=== PATIENT | male | born 1980 | race African-American/Black ===

== ENCOUNTER 2021-07-03 00:33 | Emergency (ER) | payer OTHER ==
[~2021-07-03] VITALS: Ht 170.2 cm; Wt 77.1 kg
[2021-07-03] MEDS ORDERED: MUCINEX DM ER1 EAC1 PO (04:16)
[2021-07-03] MEDS ORDERED: ACETAMINOPHEN650 M2 PO (04:16)
[2021-07-03] MEDS ORDERED: PEPCID AC20 MG PO (04:16)
[2021-07-03] MEDS ORDERED: LEVOFLOXACIN750 MG PO (04:16)
[2021-07-03] MEDS ORDERED: INTESTINEX680 M1 PO (04:16)
== END 2021-07-03 04:25 | disposition home or self-care (01) ==
LOC: ER 00:33
DX: J06.9 Acute upper respiratory infection, unspecified (principal); B34.9 Viral infection, unspecified; Z03.818 Encounter for observation for suspected exposure to other biological agents ruled out

== ENCOUNTER 2021-09-17 08:18 | Emergency (ER) | payer OTHER ==
[~2021-09-17] VITALS: Ht 167.6 cm; Wt 64.4 kg
[~2021-09-17 08:18] MED LIST: ACETAMINOPHEN650 M2 PO; INTESTINEX680 M1 PO; LEVOFLOXACIN750 MG PO; MUCINEX DM ER1 EAC1 PO; PEPCID AC20 MG PO
== END 2021-09-17 13:44 | disposition home or self-care (01) ==
LOC: ER 08:18
DX: B34.9 Viral infection, unspecified (principal); Z20.822 Contact with and (suspected) exposure to COVID-19